=== PATIENT | female | born 1955 | race Caucasian/White ===

== ENCOUNTER 2017-12-17 09:22 | Emergency (ER) | payer BC, SELFPAY ==
[2017-12-17 09:32] VITALS: BP 160/84; PULSE 86; RESP 14; TEMP 37.1; O2SAT 99
--- NOTE | 2017-12-17 09:52 | ED.GENADUL_ITS ---
Discharge Plan Disposition Patient Disposition: HOME Condition: Stable Discharge Details Chief Complaint: Orthopedic Clinical Impression: Laceration of leg, right Primary Care Provider: Brianne Pate ED Provider: Angel Angulo Home Meds and New Rx's Prescriptions: No Action No Known Home Meds RF: 0 Discharge Instructions Instructions: Laceration (ED) Additional Instructions: have the sutures removed in 7-10 days if redness spreads up or down the leg or yellow/white discharge comes from the wound return to the emergency department Medical Decision Making Pt was working last night around 1230 at night removing brush and a branch fell and hit her right thigh causing a 1.5cm laceration just proximal to the right knee. Has had bleeding intermittently so came here. Is bearing weight and has full rom of the knee and no pain with palpation of the knee so doubt fx, likely has mild contusion. No laxity to suggest acl injury or other ligamentous injury. She states she has some mild discomfort as well of the left ring finger and has very mild pain of base of left ring finger, full rom without pain, suspect contusion and do not feel xrays indicated. Will irrigate and close her laceration Differential Diagnosis laceration, contusion HPI General Mode of arrival: ambulatory . Date/Time Provider Initiated Documentation: 12/17/17 09:32 . Limitations to Documentation: no limitations . Information obtained by: patient . History of Present Illness 62 year old F presents to the emergency department with the chief complaint of right leg laceration, described as mild, Quality is described as aching, and is localized to the right and lower extremity. Patient reports no radiation. Patient started experiencing this hour(s) (9) and it has been constant. No relieving factors improve symptom(s), No exacerbating factors reported . Patient did receive the following treatments prior to arrival, none Related Data Home Medications Medication Instructions Recorded Confirmed Unknown [No Known Home Meds] 12/17/17 12/17/17 Allergies Allergy/AdvReac Type Severity Reaction Status Date / Time No Known Allergies Allergy Unverified 12/17/17 09:36 General Stated Complaint: Orthopedic JENNY: 4 Review of Systems Review of Systems All systems reviewed & are unremarkable except as noted in HPI and below Constitutional Denies chills, Denies fever(s) and Denies weakness Eyes Denies loss of vision ENT Denies change in voice Cardiovascular Denies chest pain and Denies dyspnea Respiratory Denies dyspnea Gastrointestinal Denies abdominal pain, Denies nausea and Denies vomiting Genitourinary Denies dysuria Musculoskeletal Denies joint swelling Integumentary/Breasts Denies rash Neurologic Denies loss of vision and Denies weakness Psychiatric Denies depression Endocrine Denies cold intolerance and Denies heat intolerance Allergic/Immunologic Denies urticaria PFSH Social History Smoking/Tobacco Use Status: Never Exam Const General: no acute distress Orientation: alert HENMT Head: normal to inspection Ears: external ears normal General nose exam: external nose normal Mouth: moist mucous membranes Eyes General: appearance normal, both eyes and all related structures Neck Neck: normal visual inspection Resp Effort & Inspection: normal respiratory effort and able to speak in complete sentences Cardio Rate: regular rate Skin General skin exam: no rashes or lesions noted Neuro General: alert and oriented x3 Psych Mental Status: mental status grossly normal Course Vital Signs Temperature 37.1 C 12/17/17 09:32 Pulse 86 12/17/17 09:32 Respiratory Rate 14 12/17/17 09:32 Blood Pressure 160/84 H 12/17/17 09:32 Pulse Oximetry 99 12/17/17 09:32 Temperature 37.1 C 12/17/17 09:32 Temperature Source Temporal Artery Scan 12/17/17 09:32 Pulse 86 12/17/17 09:32 Respiratory Rate 14 12/17/17 09:32 Respiratory Effort Non-Labored 12/17/17 09:35 Blood Pressure 160/84 H 12/17/17 09:32 Blood Pressure Position Sitting 12/17/17 09:32 Pulse Oximetry 99 12/17/17 09:32 Oxygen Delivery Method Room Air 12/17/17 09:32 Oxygen Flow Rate 0 12/17/17 09:32 Pain Level 4 12/17/17 09:32 Procedures Laceration Laceration 1: Site: lower extremity Side (If applicable): right Size (cm): 1.5 Description: linear Depth: simple, single layer Local Anesthetic: Lidocaine 1% and with Epi Amount of anesthesia used (mL): 10 Pre-repair: wound explored and irrigated extensively Skin layer closed with: nylon Size (cm): 4-0 Number of sutures: 3 Technique: simple, interrupted
[2017-12-17 10:39] VITALS: BP 143/70; PULSE 80; RESP 18; O2SAT 100
== END 2017-12-17 10:43 | disposition home or self-care (01) ==
PROVIDERS: Emergency Provider Emergency Medicine; PCP Nurse Practitioner Family
DX: S71.111A Laceration without foreign body, right thigh, initial encounter (principal); S70.11XA Contusion of right thigh, initial encounter; W22.8XXA Striking against or struck by other objects, initial encounter
CPT/HCPCS: 12001; 90471

== ENCOUNTER 2018-10-12 03:41 | Outpatient (CLI) | payer BC, SELFPAY ==
--- NOTE | 2018-10-12 09:39 | DI.MAMMO_ITS ---
SYMPTOMS/DIAGNOSIS: SCREENING, Z12.31 MAMMOGRAM: Mammograms were interpreted according to the usual protocol including computer analysis with CAD system, tomosynthesis and C view imaging. The breasts are heterogeneously dense. No dominant mass or clumped microcalcification is identified in either breast. No previous mammogram available for comparison. CONCLUSION: No specific evidence of malignancy at this time. Routine screening examinations are suggested at yearly intervals in this age group according to the ACS/ACR guidelines. Category I. Breast density Category C. MQSA ASSESSMENT OF FINDINGS: Negative. Category 1. Patient will receive a letter notifying them of these results. Bi-RADS category C. The breasts are heterogeneously dense, which may obscure small masses.
== END 2018-10-12 04:01 ==
PROVIDERS: PCP Nurse Practitioner Family; Visit Provider Nurse Practitioner Family
DX: Z12.31 Encounter for screening mammogram for malignant neoplasm of breast (principal)
CPT/HCPCS: 77063; 77067